=== PATIENT | female | born 1985 | race Two or more races ===

== ENCOUNTER 2016-08-18 11:34 | Emergency (ER) | payer BC ==
[~2016-08-18] VITALS: Ht 160 cm; Wt 52.2 kg
[2016-08-18] MEDS ORDERED: IV NS 0.9% 1,000 ML BAG IV ONE (12:30)
[2016-08-18] MEDS ORDERED: IV SET PRIMARY 1 EA INFUS.SET MC ONE ×2 (12:35→14:28)
[2016-08-18] MEDS ORDERED: IV NS 0.9% 1,000 ML ONE (12:35)
[2016-08-18 12:37] LABS: CALCIUM, SERUM 8.9 mg/dL (8.5-10.1); CREATININE 0.7 mg/dL (0.6-1.3); POTASSIUM 3.9 mmol/L (3.5-5.1)
[2016-08-18 12:38] LABS: BASOPHILS # (AUTO) 0.5 /CMM (0.0-0.2); BASOPHILS % (AUTO) 2.9 % (0.0-2.0); DIFF TOTAL % 100 %; EOSINOPHILS # (AUTO) 0.1 /CMM (0.0-0.7); EOSINOPHILS % (AUTO) 0.3 % (0.0-6.0); HEMATOCRIT 36 % (33-45); HEMOGLOBIN 12.4 g/dL (11.5-14.8); LYMPHOCYTES % (AUTO) 5.9 % (20.0-44.0); MEAN CORPUSCULAR HEMOGLOBIN 30 PG (26.0-33.0); MEAN CORPUSCULAR HGB CONC 34 g/dl (31.0-36.0); MEAN CORPUSCULAR VOLUME 89 fL (82-100); MONOCYTES # (AUTO) 0.8 /CMM (0.1-1.30); MONOCYTES % (AUTO) 4.9 % (2.0-12.0); NEUTROPHILS # (AUTO) 14.9 /CMM (1.8-8.9); PLATELET COUNT (AUTO) 242 /CMM (150-450); RED BLOOD CELL COUNT(AUTO) 4.07 MIL/uL (4.0-5.2); WHITE BLOOD COUNT (AUTO) 17.3 K/uL (4.3-11.0)
[2016-08-18 12:42] LABS: ALBUMIN 3.9 g/dL (3.4-5.0); BILIRUBIN,DIRECT 0.1 mg/dL (0.0-0.2); BILIRUBIN,TOTAL 0.8 mg/dL (0.2-1.0); INDIRECT BILIRUBIN 0.7 mg/dL (0.0-1.1); TOTAL PROTEIN, SERUM 7.4 g/dL (6.4-8.2)
[2016-08-18] MEDS ORDERED: CEFTRIAXONE 1GM BAG (ER ONLY) 50 ML IV ONE ×2 (14:00→14:28)
[2016-08-18 14:13] LABS: KETONES,URINE 15 (NEGATIVE); LEUKOCYTE ESTERASE ,URINE Negative (NEGATIVE)
[2016-08-18 14:17] LABS: ADD UA MICROSCOPIC YES
[2016-08-18 14:27] LABS: PREGNANCY TEST URINE QUAL NEGATIVE (NEGATIVE)
[2016-08-18 14:30] LABS: ADD URINE CULTURE NO; WBC,URINE 0-2 /HPF (0-3)
[2016-08-18 15:06] VITALS: BP 98/59
== END 2016-08-18 15:07 | disposition home or self-care (01) ==
LOC: ER 11:40
DX: R50.9 Fever, unspecified (principal); R53.1 Weakness
CPT/HCPCS: 36415; 80048-TC; 80076-TC; 81000-TC; 83605-TC; 84703-TC; 85025-TC; 87040-TC; 87086-TC; A4606; J0696; J7030; Z7610

== ENCOUNTER 2017-01-29 19:26 | Emergency (ER) | payer BC ==
[~2017-01-29] VITALS: Ht 160 cm; Wt 52.2 kg
--- NOTE | 2017-01-29 19:57 | NUR ---
PT AMBULATED IN WITH A STEADY GAIT TO BED #7. PT IS BEING PLACED ON THE MONITOR AND CONTINUOUS PULSE OX.
--- NOTE | 2017-01-29 20:17 | NUR ---
US IS AT THE BEDSIDE.
[2017-01-29 20:51] VITALS: BP 102/60
== END 2017-01-29 20:52 | disposition home or self-care (01) ==
LOC: ER 19:30
DX: O9A.212 Injury, poisoning and certain other consequences of external causes complicating pregnancy, second trimester (principal); R10.31 Right lower quadrant pain; R10.32 Left lower quadrant pain; Z3A.16 16 weeks gestation of pregnancy; V43.52XA Car driver injured in collision with other type car in traffic accident, initial encounter; Y93.89 Activity, other specified; Y92.89 Other specified places as the place of occurrence of the external cause; Y99.9 Unspecified external cause status
CPT/HCPCS: 76856-TC; A4606; Z7610

== ENCOUNTER 2017-04-07 08:53 | Emergency (ER) | payer BC ==
[~2017-04-07] VITALS: Ht 160 cm; Wt 55.8 kg
--- NOTE | 2017-04-07 08:53 | NUR ---
C/O LOWER ABDOMINAL PAIN SINCE LAST NIGHT, 26 WEEKS , A0. AWAITING MD ORDER
--- NOTE | 2017-04-07 09:26 | NUR ---
LAC #20 IV ACCESS . BLOOD SAMPLE COLLECTED SENT TO LAB.
--- NOTE | 2017-04-07 09:27 | NUR ---
[employer] ADMINISTRATOR AT BEDSIDE
--- NOTE | 2017-04-07 09:27 | NUR ---
PT REFUSE MORPHINE AND ZOFRAN AT THIS TIME
--- NOTE | 2017-04-07 09:27 | NUR ---
URINE SAMPLE COLLECTED SENT TO LAB
[2017-04-07 09:33] LABS: BASOPHILS # (AUTO) 0.1 /CMM (0.0-0.2); BASOPHILS % (AUTO) 0.8 % (0.0-2.0); EOSINOPHILS # (AUTO) 0.1 /CMM (0.0-0.7); EOSINOPHILS % (AUTO) 0.7 % (0.0-6.0); HEMATOCRIT 38 % (33-45); HEMOGLOBIN 12.7 g/dL (11.5-14.8); LYMPHOCYTES # (AUTO) 1.6 /CMM (0.8-4.8); MEAN CORPUSCULAR HEMOGLOBIN 32 PG (26.0-33.0); MEAN CORPUSCULAR HGB CONC 34 g/dl (31.0-36.0); MEAN CORPUSCULAR VOLUME 95 fL (82-100); MONOCYTES # (AUTO) 0.8 /CMM (0.1-1.30); MONOCYTES % (AUTO) 4.7 % (2.0-12.0); NEUTROPHILS # (AUTO) 13.4 /CMM (1.8-8.9); NEUTROPHILS % (AUTO) 83.8 % (43.0-81.0); PLATELET COUNT (AUTO) 209 /CMM (150-450); RDW COEFFICIENT OF VARIATION 13.8 (11.5-15.0); RED BLOOD CELL COUNT(AUTO) 3.98 MIL/uL (4.0-5.2)
[2017-04-07 09:34] LABS: APPEARANCE,URINE SL CLOUDY (CLEAR); BILIRUBIN,URINE 1+ (NEGATIVE); BLOOD, URINE 1+ Ery/uL (NEGATIVE); COLOR,URINE YELLOW (YELLOW); KETONES,URINE NEGATIVE (NEGATIVE); LEUKOCYTE ESTERASE ,URINE NEGATIVE (NEGATIVE); NITRITE, URINE NEGATIVE (NEGATIVE); PROTEIN,URINE NEGATIVE (NEGATIVE); UGLUCOSE NEGATIVE (NEGATIVE); UROBILINOGEN,URINE 0.2 EU/dL (0.2)
[2017-04-07 09:37] LABS: BACTERIA,URINE 1+ /HPF (None Seen); WBC,URINE 0-2 /HPF (0-3)
[2017-04-07 09:49] LABS: INR 0.86 (0.87-1.13); PROTHROMBIN TIME 9.1 SECS (9.5-12.7)
[2017-04-07 09:54] LABS: CREATININE 0.4 mg/dL (0.6-1.3); POTASSIUM 3.8 mmol/L (3.5-5.1)
[2017-04-07 10:06] LABS: BILIRUBIN,DIRECT 0.1 mg/dL (0.0-0.2); BILIRUBIN,TOTAL 0.4 mg/dL (0.2-1.0); TOTAL PROTEIN, SERUM 7.3 g/dL (6.4-8.2)
--- NOTE | 2017-04-07 10:34 | NUR ---
Patient discharged to home in stable condition. Written and verbal after care instructions given. Patient verbalizes understanding of instruction.
--- NOTE | 2017-04-07 10:34 | NUR ---
IV removed. Catheter intact and site benign. Pressure and 4x4 applied to site. No bleeding noted.
[2017-04-07 10:39] VITALS: BP 100/58
== END 2017-04-07 10:41 | disposition home or self-care (01) ==
LOC: ER 08:57
DX: O23.12 Infections of bladder in pregnancy, second trimester (principal); D25.9 Leiomyoma of uterus, unspecified; O26.892 Other specified pregnancy related conditions, second trimester; O34.12 Maternal care for benign tumor of corpus uteri, second trimester; Z3A.26 26 weeks gestation of pregnancy
CPT/HCPCS: 36415; 76805-TC; 80048-TC; 80076-TC; 81000-TC; 85025-TC; 85730-TC; A4606; Z7610